=== PATIENT | male | born 1960 | race Caucasian/White ===

== ENCOUNTER 2022-05-02 07:43 | Day surgery (SDC) | payer OTHER ==
[2022-04-26 12:19] VITALS: BMI 35.5
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
[~2022-05-02 07:43] MED LIST: LACTATED RINGERS 1,000 ML IV SCH
[2022-05-02 08:33] VITALS: TEMP 97.1
[2022-05-02] MEDS ORDERED: fentaNYL (PF) 50 MCG/ML 2 ML AMP ONE (08:34)
[2022-05-02] MEDS ORDERED: PHENYLEPHRINE-0.9% NACL SYG 1,000 MCG/10 ML SYRINGE ONE (08:34)
[2022-05-02] MEDS ORDERED: PROPOFOL 10 MG/ML 20 ML VIAL IV ONE (08:34)
[2022-05-02] MEDS ORDERED: LIDOCAINE 2% INJ 20 MG/ML (2 ML VIAL) ONE (08:34)
--- NOTE | 2022-05-02 08:57 | P.PCN ---
Date of Procedure: 05/02/22 Description of Procedure: PREOPERATIVE DIAGNOSIS: Gastroesophageal reflux disease. POSTOPERATIVE DIAGNOSIS: Gastroesophageal reflux disease. Gastritis with bleeding Duodenitis OPERATION: Esophagogastroduodenoscopy with cold forceps biopsies along antrum and duodenum SURGEON: Rebecca Carrizales MD ANESTHESIA: MAC. INDICATIONS: The patient is a 61-year-old male who presents with reflux disease. Benefits and risks of the procedure were described. Informed consent was obtained. DESCRIPTION: The patient was brought into the endoscopy suite and laid in the left lateral decubitus position. An Olympus gastroscope was passed along the posterior oropharynx down to the distal esophagus where the squamocolumnar junction was encountered at 43 cm from the incisors. The stomach was entered and no bile reflux was found. Additional findings are listed below. Biopsies with cold forceps were obtained of the antrum. The first through third portion of the duodenum was examined. Retroflexion of the scope confirmed Hill grade 2 lower esophageal valve. The squamocolumnar junction demonstrated LA grade A erosive esophagitis. The stomach was desufflated. The patient tolerated the procedure well. FINDINGS: Squamocolumnar junction 43 cm from the incisors. Diaphragmatic hiatus at 43 cm. Hill grade 2 lower esophageal valve. LA grade A erosive esophagitis. Active duodenitis with cold forcep biopsies obtained Chronic gastritis with bleeding RECOMMENDATIONS: Omeprazole 40 mg daily for 2 weeks
--- NOTE | 2022-05-02 09:26 | P.PCN ---
Date of Procedure: 05/02/22 Description of Procedure: PREOPERATIVE DIAGNOSIS: Personal history of colon polyps Colonoscopy screening POSTOPERATIVE DIAGNOSIS: Tubular adenoma hepatic flexure Scattered diverticulosis Internal hemorrhoids, grade 2 Tubular adenoma, sigmoid colon OPERATION: Colonoscopy to the ileocecal valve and appendiceal orifice, cecum Colonoscopy with hot snare polypectomy Colonoscopy with cold forceps biopsy SURGEON: Rebecca Carrizales MD. ANESTHESIA: MAC. INDICATIONS: The patient is an 61-year-old male who presents personal history of colon polyps. Last colonoscopy 5 years. Benefits and risks were described and informed consent was obtained. DESCRIPTION OF PROCEDURE: The patient had undergone Sutab prep. The patient had been brought into the operating room and laid in the left lateral decubitus position. After adequate intravenous sedation, the rectum was examined with 2% lidocaine jelly. The prostate was unremarkable. External hemorrhoids were encountered. The rectal tone was within normal limits. No lesions were palpated in the rectal vault. An Olympus colonoscope was advanced until the cecum, ileocecal valve and appendiceal orifice were clearly viewed. The prep was excellent. Few scattered diverticulosis was encountered. Colonic polyps were found and removed. No evidence of focal colitis was found. Retroflexion of the scope demonstrated grade 2 internal hemorrhoids without active bleeding or inflammation. The colon was desufflated. The patient had tolerated the procedure well. Withdrawal time was over 6 minutes. FINDINGS: Aronchick preparation quality scale 1 (1-5) Internal hemorrhoids, grade 2 External hemorrhoids, grade 2. No arteriovenous malformations. Few scattered diverticulosis Removal of 4 polyps: - Snare polypectomy hepatic flexure, 8 mm tubulovillous adenoma polyp. - Cold forceps biopsy at 20 cm from the anal verge 3, 3 to 4 mm polyps. No focal colitis. RECOMMENDATIONS: Given severity of tubular adenomas, recommend repeat colonoscopy 3 years, 2024 Plan - Discharge Summary Discharge Rx Participant: No New Discharge Prescriptions: New Sucralfate [Carafate] 1 gm PO BID #30 tablet Omeprazole [PriLOSEC] 40 mg PO DAILY #14 cap Continue Baclofen [Lioresal] 20 mg PO QID Gabapentin 600 mg PO TID Losartan [Cozaar] 12.5 mg PO DAILY Discontinued Ibuprofen [Motrin] 600 mg PO Q8HR PRN PRN Reason: Pain Discharge Medication List Baclofen [Lioresal] 20 mg PO QID 02/23/16 [History] Gabapentin 600 mg PO TID 02/26/16 [History] Losartan [Cozaar] 12.5 mg PO DAILY 04/26/22 [History] Omeprazole [PriLOSEC] 40 mg PO DAILY #14 cap 05/02/22 [Rx] Sucralfate [Carafate] 1 gm PO BID #30 tablet 05/02/22 [Rx] Follow up Appointment(s)/Referral(s): Rebecca Carrizales MD [STAFF PHYSICIAN] - 05/21/22 Patient Instructions/Handouts: Gastritis (DC), Diverticulosis (ED), Diet for Stomach Ulcers and Gastritis (ED), Colorectal Polyps (GEN), Diverticulosis Diet (GEN) Activity/Diet/Wound Care/Special Instructions: Repeat colonoscopy 3 years, 2024 Discharge Disposition: HOME SELF-CARE
[2022-05-02 09:46] VITALS: BP 102/69; PULSE 92; RESP 20
== END 2022-05-02 10:28 | disposition home or self-care (01) ==
LOC: ORWHC2ENDO 07:43
PROVIDERS: ATTEND Surgery Plastic and Reconstructive Surgery
DX: Z12.11 Encounter for screening for malignant neoplasm of colon (principal); K63.5 Polyp of colon; K57.30 Diverticulosis of large intestine without perforation or abscess without bleeding; K64.1 Second degree hemorrhoids; K29.51 Unspecified chronic gastritis with bleeding; K29.80 Duodenitis without bleeding; K44.9 Diaphragmatic hernia without obstruction or gangrene; K21.00 Gastro-esophageal reflux disease with esophagitis, without bleeding; Z86.010 Personal history of colon polyps; I10 Essential (primary) hypertension; G89.29 Other chronic pain; M54.9 Dorsalgia, unspecified; Z90.49 Acquired absence of other specified parts of digestive tract; Z87.891 Personal history of nicotine dependence; Z79.899 Other long term (current) drug therapy; G47.33 Obstructive sleep apnea (adult) (pediatric); Z80.3 Family history of malignant neoplasm of breast
CPT/HCPCS: 88305; 45380; 45385; 43239; J3010; J2370; J2704; J2001

== ENCOUNTER 2022-08-16 19:55 | Emergency (ER) | payer OTHER ==
[2022-08-16 20:00] VITALS: RESP 18; TEMP 98.1
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
[2022-08-17 00:12] VITALS: BP 156/71; PULSE 71
== END 2022-08-17 00:12 | disposition home or self-care (01) ==
LOC: EC 19:55
DX: M54.9 Dorsalgia, unspecified (principal); R51.9 Headache, unspecified; I10 Essential (primary) hypertension; G47.30 Sleep apnea, unspecified; Z87.891 Personal history of nicotine dependence; Z79.811 Long term (current) use of aromatase inhibitors; Z79.899 Other long term (current) drug therapy
CPT/HCPCS: 72125; 70450; 99285; 96372; J3360

== ENCOUNTER → 2022-09-06 | Outpatient (CLI) | payer OTHER ==
--- NOTE | 2022-09-09 15:30 | MR ---
MRI CERVICAL SPINE: CLINICAL HISTORY: Cervicalgia. TECHNIQUE: Multiplanar, multisequence imaging of the cervical spine is performed without IV contrast. COMPARISON: CT cervical spine August 16, 2022. FINDINGS: Sagittal images of the cervical spine show the craniocervical junction to show focal narrow ing with ligamentous thickening posterior to the dens. There is abnormal course of level of foramen m agnum with areas of increased T2 signal seen superior C4 and possibly C5 level sagittal image 10 wher e there is diminished AP diameter to the cord. There is increased signal roughly C6 level sagittal im age 9. Alignment is straightened. Artifact from anterior fusion hardware at C3-C4 level and C7-T1 lev el is present. There is ossific fusion or arthrodesis from C4 through C7 levels. Surgical to C7-T1 le parul on CT vessel seen on MRI. Prominent anterior osteophytes in the upper cervical spine are redemons trated. The bone marrow signal intensity is within normal limits. There is nonspecific lobulated 1.6 x 1.0 cm T1 hypointense and T2 hyperintense lesion involving the r ight posterior C2 axial image [address] image 50 including the level of base of dens on coronal images. Spinal cord shows slight increased signal at this level with mass effect in the right sided osseous lesion has posterior extension. Axial images at C2-C3 level show uncovertebral facet degenerative changes causing mild bilateral neur al foraminal narrowing. Axial images at C3-C4 level show broad-based right paracentral/foraminal reported complex effacing th e anterolateral thecal sac along with uncovertebral facet degenerative changes causing moderate to ad vanced right and moderate left-sided neural foraminal narrowing. Axial images at C4-C5 level broad-based left paracentral bony projection efface the anterolateral the lyly sac, there is mild bilateral neural foraminal narrowing. Spinal cord is flattened with increased signal at this level. Axial images at C5-C6 level shows broad-based posterior projection efface the anterior thecal sac and causing moderate left greater than right bilateral neural foraminal narrowing. Axial images at C6-C7 level appear within normal limits. Axial images at C7-T1 level near image 18 shows moderate left-sided neural foraminal narrowing due to foraminal bony projection. Axial images at T1-T2 level show marginal spurring causing [id number] bilateral neural foramina l narrowing. IMPRESSION: Straightening of cervical spine with multilevel degenerative changes as detailed above. A reas of myelomalacia in the cervical spinal cord are noted. There is nonspecific bony lesion involvin g the C2 vertebra posteriorly extending to the anterior spinal canal having mass effect on spinal cor d. Spinal canal stenosis overall as seen at this level. Correlate clinically.
== END | disposition home or self-care (01) ==
LOC: RADMRIMAIN 10:10
PROVIDERS: ATTEND Orthopaedic Surgery Orthopaedic Surgery of the Spine
DX: M79.12 Myalgia of auxiliary muscles, head and neck (principal); M48.02 Spinal stenosis, cervical region; M47.812 Spondylosis without myelopathy or radiculopathy, cervical region; G95.89 Other specified diseases of spinal cord
CPT/HCPCS: 72141

== ENCOUNTER → 2022-10-19 | Outpatient (CLI) | payer OTHER ==
--- NOTE | 2022-10-19 11:35 | XR ---
EXAMINATION TYPE: XR thoracic spine 3 views DATE OF EXAM: 10/19/2022 COMPARISON: NONE HISTORY: 61-year-old male Z98.1, assess arthrodesis status. TECHNIQUE: 3 views FINDINGS: C3-C4 ACDF. There may be additional C7-T1 ACDF. There is right lateral and interbody T9-T10 thoracic fusion hardware. There is a T7-T8 interbody device that shows no retropulsion. Right lateral eighth r ib internal fixation. The fixation plate may be broken along its mid aspect on the lateral view. Mild ly displaced fracture of the right lateral seventh rib. Overall vertebral body heights are preserved and overall alignment appears maintained alignment for some limitations due to underpenetration. IMPRESSION: 1. Status post C3-C4 and C7-T1 ACDF. Right lateral and interbody thoracic spinal fusion at T9-T10. In terbody fusion device at T7-T8. 2. Right lateral eighth rib internal fixation hardware. The fixation plate may be broken along its mi d aspect on the lateral view. 3. Mildly displaced fracture of the right lateral seventh rib. Correlate as to chronicity.
--- NOTE | 2022-10-19 11:42 | XR ---
EXAMINATION TYPE: XR lumbar spine with bend/flex, 7 views DATE OF EXAM: 10/19/2022 Comparison: None Clinical History: 61-year-old male Z98.1 ARTHRODESIS STATUS Findings: L1-L2 posterior and interbody fusion is demonstrated. Moderate degenerative disc disease. Hypertrophi c facet arthropathy mid to lower lumbar spine. There is bridging anterior endplate spondylosis at L4- L5 and L5-S1. Degenerative grade 1 retrolisthesis T12-L1, grade 1 retrolisthesis L2-L3 and L3-L4. Tra ce grade 1 anterolisthesis L4-L5. No dynamic subluxation on flexion or extension. Impression: 1. L1-L2 posterior and interbody fusion. There is some anterior bridging endplate spondylosis at L4-L 5 and L5-S1. 2. Fixed degenerative grade 1 spondylolisthesis at T12-L1, L2-L3, L3-L4, L4-L5. No dynamic subluxatio n on flexion-extension. 3. Moderate degenerative disc disease throughout. Hypertrophic facet arthropathy.
--- NOTE | 2022-10-19 21:35 | MR ---
EXAMINATION TYPE: MR thoracic spine wo con DATE OF EXAM: 10/19/2022 10:53 AM COMPARISON: 07/24/2016 MRI T and L-spine INDICATION: Patient age:Male; 61 years old; Reason for study: Z98.1 ARTHRODESIS STATUS; TECHNIQUE: Multi planar, multi sequence imaging was performed utilizing: T1-weighted and T2-weighted of the thoracic spine. The patient was not given Gadolinium. IV Contrast: None FINDINGS: Mild scoliosis changes present with dextroscoliosis of the thoracic spine apex T6 and levos coliosis of the lumbar spine apex T11. There is multilevel disc space narrowing present with postsurg ical changes at C7-T1, T7-T8, T9-T10 and partially visualized at L1 and L2 are present. No evidence f or abnormal signal on inversion recovery since sequences to suggest bony edema. Multilevel disc space narrowing and disc desiccation is present. Multilevel Modic changes are present with osteophytes pre sent. The visualized portions of the spinal cord demonstrates increased signal at the level of T7-T8 and th e lateral aspect and at T9-T10 along the right and central aspect. (Series 701 image 25). T1-T2: Mild grade 1 anterolisthesis with disc uncovering and disc bulging resulting in moderate spina l spinal canal stenosis. The neural foramen are patent. T2-T3: Disc bulging and facet joint arthropathy result in mild to moderate spinal canal stenosis. Mod erate bilateral neural foraminal stenosis from facet joint arthropathy. T5-T6: Left central disc protrusion with mild spinal canal stenosis. The neural foramen are patent. T7-T8: Discectomy changes with asymmetric left osteophyte resulting in moderate spinal canal stenosis . There is increased cord signal at this level on the left lateral aspect as mentioned above. Mild to moderate left neural foraminal stenosis. T8-T9: Central disc protrusion which abuts the anterior spinal cord. The spinal cord signal maintaine d. The neural foramen is patent. T9-T10: Postsurgical changes and osteophyte formation with mild spinal canal stenosis. There is mild spinal canal narrowing. Mild right neural foraminal stenosis the left neural foramen is patent. T10-T11: Facet joint arthropathy and disc bulge with mild to moderate spinal canal stenosis. Moderate bilateral neural foraminal stenosis from facet joint arthropathy. T11-T12: Disc bulging and facet joint arthropathy with moderate to severe spinal canal stenosis at th e level. Moderate to severe neural foraminal stenosis bilaterally from facet joint arthropathy. T12-L1: Postsurgical changes limit evaluation of this level. There is at least mild spinal canal joana nosis secondary to disc bulge anteriorly slightly eccentric right. Neural foramen are patent. The levels not mentioned demonstrate patent spinal canal and neural foramen. Other: Mild atrophy changes of the left supraspinatus and infraspinatus and right supraspinatus muscl es suspicious for rotator cuff tears. IMPRESSION: 1. Multilevel disc degeneration changes as described above. Findings worse at T11-T12 with moderate to severe spinal canal stenosis and T7-T8 with moderate spinal canal stenosis. Mildly progressed at T 11-T12 and similar at T7-T8. 2. Myelomalacia of the spinal cord at the level of T7-T8 on the left lateral aspect and T9-T10 along the right and central portion of the spinal cord which are both similar to 2016.
== END | disposition home or self-care (01) ==
LOC: RADMRIMAIN 09:22
PROVIDERS: ATTEND Specialist
DX: S22.41XA Multiple fractures of ribs, right side, initial encounter for closed fracture (principal); M51.36 Other intervertebral disc degeneration, lumbar region; M47.816 Spondylosis without myelopathy or radiculopathy, lumbar region; M47.817 Spondylosis without myelopathy or radiculopathy, lumbosacral region; M43.16 Spondylolisthesis, lumbar region; M48.04 Spinal stenosis, thoracic region; M51.34 Other intervertebral disc degeneration, thoracic region; G95.89 Other specified diseases of spinal cord; Z98.1 Arthrodesis status
CPT/HCPCS: 72070; 72114; 72146

== ENCOUNTER → 2022-10-22 | Outpatient (CLI) | payer OTHER ==
--- NOTE | 2022-10-22 15:41 | MR ---
EXAMINATION TYPE: MR lumbar spine wo con DATE OF EXAM: 10/22/2022 COMPARISON: MRI thoracic spine 10/19/2022, lumbar spine radiograph 10/19/2022, MRI thoracolumbar spin e 07/24/2016. HISTORY: Arthrodesis status, history of surgery TECHNIQUE: Multiplanar, multisequence images of the lumbar spine were acquired without IV contrast. FINDINGS: Mild retrolisthesis of L2 on L3. Mild S-shaped curvature of the thoracolumbar spine. Postsurgical kamla nges of bilateral pedicular screws and rods involving L1 and L2. Hardware appears intact with appropr iate alignment. Type II Modic changes involving the inferior endplate of L5 and superior endplate of S1. No paraspinal masses are identified. Conus medullaris has a normal appearance. L1-L2: Postsurgical changes with central disc protrusion with facet arthropathy contributing to moder ate spinal canal stenosis. Moderate bilateral neural foraminal stenosis. L2-L3: Broad-based disc bulge with ligamentum flavum buckling and facet arthropathy contribute to mod erate spinal canal stenosis. Moderate to severe bilateral neural foraminal stenosis. L3-L4: Broad-based disc bulge with ligament flavum buckling and facet hypertrophy resulting in modera te spinal canal stenosis. Moderate to severe bilateral neural foraminal stenosis. L4-L5: Left central disc protrusion superimposed upon a broad-based disc bulge with facet arthropathy and ligamentum flavum buckling contributing to moderate spinal canal stenosis. Moderate bilateral ne uroforaminal stenosis. L5-S1: Central disc protrusion superimposed upon a broad-based disc bulge with minimal effacement of the anterior thecal sac. There is facet arthropathy bilaterally. Minimal spinal canal narrowing. Mode rate to severe bilateral neural foraminal stenosis. IMPRESSION: 1. L1-L2, L4-L5, and L5-S1 disc herniations. 2. Moderate multilevel degenerative disc disease. Moderate spinal canal stenosis at L1-L2, L2-L3, L3 -L4, and L4-L5. Varying degrees of neural foraminal stenosis. 3. Postsurgical changes with bilateral pedicle screws and rods involving L1-L2.
== END | disposition home or self-care (01) ==
LOC: RADMRIMAIN 13:05
PROVIDERS: ATTEND Specialist
DX: M51.27 Other intervertebral disc displacement, lumbosacral region (principal); M51.36 Other intervertebral disc degeneration, lumbar region; M48.061 Spinal stenosis, lumbar region without neurogenic claudication; M99.73 Connective tissue and disc stenosis of intervertebral foramina of lumbar region; Z98.1 Arthrodesis status
CPT/HCPCS: 72148

== ENCOUNTER → 2023-04-17 | Outpatient (CLI) | payer OTHER ==
--- NOTE | 2023-04-17 19:47 | XR ---
EXAMINATION TYPE: XR cervical spine 5 views DATE OF EXAM: 04/17/2023 Comparison: None Clinical History: 62-year-old male M43.22 Findings: Extensive posterior craniocervical fusion extending from the occiput down through C5. ACDF at C3-C4 w ith mature bony bridging. Interbody ankylosis extends at least down to the C7 level but additional AC DF is noted probably in the T1-T2 level. Overall alignment appears maintained. No prevertebral soft t issue swelling. 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 There is ACDF at C3-C4 and also lower down probably T1-T2. Preserved alignment. No prevertebral soft tissue swelling.
== END | disposition home or self-care (01) ==
LOC: RADXRMAIN 14:08
PROVIDERS: ATTEND Specialist
DX: M43.22 Fusion of spine, cervical region (principal); Z98.1 Arthrodesis status
CPT/HCPCS: 72040

== ENCOUNTER 2024-12-21 15:23 | Emergency (ER) | payer MEDICARE, OTHER ==
[2024-12-21 15:38] VITALS: RESP 16
--- NOTE | 2024-12-21 15:49 | ED ---
General Adult HPI - General Chief complaint: Back Pain/Injury Stated complaint: Back Pain Time Seen by Provider: 12/21/24 15:35 Source: patient, EMS Mode of arrival: EMS Limitations: no limitations - History of Present Illness Initial comments: Patient is a 64-year-old male present to the emergency department with concerns with back pain. Patient has chronic back pain. Patient is chronically on naproxen and muscle relaxers for this. Patient states symptoms have been worse the past 2 weeks. Patient states he has had previous imaging has seen doctors as well. Patient states he did also see a doctor at an outside facility a couple of days ago and was given a new muscle relaxer. No new incontinence or retention of bowel or bladder products. No leg weakness. Discomfort is right sciatic region and does radiate down a little bit. Similar to previous symptoms. Patient did have a fall 2 days ago onto his bottom. Patient states this seems to make things worse. - Related Data Home Medications Medication Instructions Recorded Confirmed Baclofen [Lioresal] 20 mg PO QID 02/23/16 05/02/22 Gabapentin 600 mg PO TID 02/26/16 05/02/22 Losartan [Cozaar] 12.5 mg PO DAILY 04/26/22 05/02/22 Previous Rx's Medication Instructions Recorded Omeprazole [PriLOSEC] 40 mg PO DAILY #14 cap 05/02/22 Sucralfate [Carafate] 1 gm PO BID #30 tablet 05/02/22 predniSONE 50 mg PO DAILY #5 tab 12/21/24 Allergies Allergy/AdvReac Type Severity Reaction Status Date / Time No Known Allergies Allergy Verified 12/21/24 15:38 Review of Systems ROS Statement: Those systems with pertinent positive or pertinent negative responses have been documented in the HPI. ROS Other: All systems not noted in ROS Statement are negative. Constitutional: Denies: fever Eyes: Denies: eye pain ENT: Denies: ear pain Respiratory: Denies: dyspnea Cardiovascular: Denies: chest pain Gastrointestinal: Denies: abdominal pain Musculoskeletal: Reports: as per HPI Neurological: Denies: weakness Past Medical History Past Medical History: Hypertension, Sleep Apnea/CPAP/BIPAP Additional Past Medical History / Comment(s): CPAP -USES CPAP. CHRONIC BACK PAIN (USES CANES TO WALK). , History of Any Multi-Drug Resistant Organisms: None Reported Past Surgical History: Back Surgery, Cholecystectomy, Tonsillectomy Additional Past Surgical History / Comment(s): HAD BILAT CATARACT REMOVED WITH LENS IMPLANTS. AUTO TRAUMA: HAS HAD 4 BACK SURGERIES PLUS 5 CERIVAL FUSIONS. RIGHT ORIF AND ALSO REFRACTURED THAT LEG., COLONOSCOPY , RT KNEE SX Past Anesthesia/Blood Transfusion Reactions: No Reported Reaction Past Psychological History: No Psychological Hx Reported Smoking Status: Former smoker Past Alcohol Use History: Occasional Past Drug Use History: None Reported - Past Family History Mother Family Medical History: Cancer Additional Family Medical History / Comment(s): BREAST CA General Exam Limitations: no limitations General appearance: alert, in no apparent distress Head exam: Present: normocephalic Eye exam: Present: normal appearance Neck exam: Present: normal inspection Respiratory exam: Present: normal lung sounds bilaterally Cardiovascular Exam: Present: regular rate, normal rhythm Expanded Peripheral pulses: 2+: Dorsalis Pedis (R), Dorsalis Pedis (L) GI/Abdominal exam: Present: soft. Absent: tenderness, pulsatile mass Extremities exam: Present: pedal edema ( patient states this is chronic). Absent: calf tenderness Back exam: Present: tenderness (Right sciatic region) Neurological exam: Present: alert. Absent: motor sensory deficit Expanded Sensory exam: Lower Extremity Light Touch: Normal Motor strength exam: RLE: 5, LLE: 5 Psychiatric exam: Present: normal affect, normal mood Skin exam: Present: normal color Course Vital Signs 12/21/24 15:30 Pulse Rate 74 Respiratory 16 Rate Blood Pressure 134/85 O2 Sat by Pulse 97 Oximetry Medical Decision Making - Medical Decision Making Was pt. sent in by a medical professional or institution (, PA, POULTRY VETERINARIAN, urgent care, hospital, or penitentiary...) When possible be specific @ -No Did you speak to anyone other than the patient for history (EMS, parent, family, police, friend...)? What history was obtained from this source @ -No Did you review nursing and triage notes (agree or disagree)? Why? @ -I reviewed and agree with nursing and triage notes Were old charts reviewed (outside hosp., previous admission, EMS record, old EKG, old radiological studies, urgent care reports/EKG's, penitentiary records)? Report findings @ -No old charts were reviewed Differential Diagnosis (chest pain, altered mental status, abdominal pain women, abdominal pain men, vaginal bleeding, weakness, fever, dyspnea, syncope, headache, dizziness, GI bleed, back pain, seizure, CVA, palpatations, mental health, musculoskeletal)? @ -Differential Back Pain: Strain, zoster, cauda equina syndrome, epidural abscess, vertebral osteomyelitis, discitis, fracture, subluxation, disc herniation, DJD, spinal stenosis, dissection, AAA, pancreatitis, peptic ulcer disease, pyelonephritis, kidney stone, this is not meant to be an all-inclusive list. EKG interpreted by me (3pts min.). @ -As above X-rays interpreted by me (1pt min.). @ -Sacral x-rays without acute abnormality CT interpreted by me (1pt min.). @ -None done U/S interpreted by me (1pt. min.). @ -None done What testing was considered but not performed or refused? (CT, X-rays, U/S, labs)? Why? @ -None What meds were considered but not given or refused? Why? @ -None Did you discuss the management of the patient with other professionals (professionals i.e. , PA, POULTRY VETERINARIAN, lab, RT, psych nurse, aids social worker, lumber puller, teacher, juvenile corrections officer, disease case manager rn)? Give summary @ -No Was smoking cessation discussed for >3mins.? @ -No Was critical care preformed (if so, how long)? @ -No Were there social determinants of health that impacted care today? How? (Homelessness, low income, unemployed, alcoholism, drug addiction, transportation, low edu. Level, literacy, decrease access to med. care, nursing home, rehab)? @ -No Was there de-escalation of care discussed even if they declined (Discuss DNR or withdrawal of care, Hospice)? DNR status @ -No What co-morbidities impacted this encounter? (DM, HTN, Smoking, COPD, CAD, Cancer, CVA, ARF, Chemo, Hep., AIDS, mental health diagnosis, sleep apnea, morbid obesity)? @ -History of chronic pain, sciatic and back and neck Was patient admitted / discharged? Hospital course, mention meds given and route, prescriptions, significant lab abnormalities, going to OR and other pertinent info. @ -Patient presents with acute on chronic sciatic pain. Patient does want x- rays which are unremarkable. Patient and family are updated on results and need for follow-up. Patient provided medication and injections. Undiagnosed new problem with uncertain prognosis? @ -No Drug Therapy requiring intensive monitoring for toxicity (Heparin, Nitro, In sulin, Cardizem)? @ -No Were any procedures done? @ -No Diagnosis/symptom? @ -Sciatica Acute, or Chronic, or Acute on Chronic? @ -Acute on chronic Uncomplicated (without systemic symptoms) or Complicated (systemic symptoms)? @ -Default Side effects of treatment? @ -No Exacerbation, Progression, or Severe Exacerbation? @ -No Poses a threat to life or bodily function? How? (Chest pain, [place], [place], pneumonia, PE, COPD, DKA, ARF, appy, cholecystitis, CVA, Diverticulitis, Homicidal, Suicidal, threat to staff... and all critical care pts) @ -No Disposition Clinical Impression: Sciatica Disposition: HOME SELF-CARE Condition: Stable Instructions (If sedation given, give patient instructions): Acute Low Back Pain (ED) Additional Instructions: Prescription for steroid sent to pharmacy. Do not take naproxen at the same time as steroids. Please do follow-up with primary care physician in the next couple of days for recheck. Please also follow-up with your back doctor in the next couple days for recheck. Return for weakness, loss of control of bowel or bladder, loss of sensation, fever, worsening or changing symptoms or other concerns. Prescriptions: predniSONE 50 mg PO DAILY #5 tab Is patient prescribed a controlled substance at d/c from ED?: No Referrals: Gilmar Szymanski DO [Primary Care Provider] - 1-2 days Time of Disposition: 17:04
--- NOTE | 2024-12-21 16:23 | XR ---
EXAMINATION TYPE: XR sacroiliac joint comp BILAT DATE OF EXAM: 12/21/2024 4:18 PM COMPARISON: None. CLINICAL INDICATION: Male, 64 years old with history of pain, pain TECHNIQUE: 3 view(s) obtained. FINDINGS: Sacroiliac joints are patent. No acute fracture or dislocation evident. IMPRESSION: 1. No acute osseous abnormality sacroiliac joints [facility], , 12/21/2024 4:20 PM
[2024-12-21] MEDS: KETOROLAC 15 MG/ML 1 ML VIAL IM STA (16:26)
[2024-12-21] MEDS: HYDROmorphone 1 MG/ML 1 ML SYRINGE IM STA (16:27)
[2024-12-21 17:41] VITALS: BP 135/86; PULSE 76; TEMP 98.9
[2024-12-21] MEDS: ACET/COD 300 MG/30 MG STARTER PACK 6 TAB BTL PO STA (17:47)
== END 2024-12-21 17:55 | disposition home or self-care (01) ==
LOC: EC 15:23
DX: M54.31 Sciatica, right side (principal); Z87.891 Personal history of nicotine dependence
CPT/HCPCS: 72202; 99284; 96372; J1171; J1885

== ENCOUNTER 2024-12-28 12:19 | Inpatient (IN) | payer OTHER, MEDICARE ==
--- NOTE | 2024-12-28 13:02 | CT ---
EXAMINATION TYPE: CODE STROKE: CT brain wo contr CT DLP: 1231.6 mGycm, Automated exposure control for dose reduction was used. DATE OF EXAM: 12/28/2024 12:55 PM COMPARISON: CT brain C-spine 08/16/2022 CLINICAL INDICATION:Male, 64 years old with history of Neuro deficit, acute, stroke suspected, Lt sonam ed weakness and numbness TECHNIQUE: Brain: Multiple axial CT images of the brain were obtained without IV contrast. . Coronal and sagitta l reformats reviewed. FINDINGS: Brain: Extra-axial spaces: No abnormal extra-axial fluid collections. Ventricular system: Within normal limits Cerebral parenchyma: No acute intraparenchymal hemorrhage or mass effect. The nunez-white junction is well differentiated. Cerebellum: Unremarkable. Mass effect: No evidence of midline shift. Intracranial vasculature: unremarkable Soft tissues: Normal. Calvarium/osseous structures: No depressed skull fracture. Partial visualization of cervical decompre ssion with hardware. Paranasal sinuses and mastoid air cells: Several bilateral maxillary sinus mucous retention cyst. Rem aining paranasal sinuses are clear. The mastoid air cells are clear. Visualized orbits: Bilateral aphakia IMPRESSION: No acute intracranial process. Findings called to and discussed with Dr. Erik Romano at 12:59 PM on 12/28/2024. [facility], , 12/28/2024 12:59 PM
[2024-12-28] MEDS: SODIUM CHLORIDE 0.9% 500 ML 500 ML IV STA (13:10)
[2024-12-28 13:11] LABS: Glucose,Whole Blood 96 mg/dL (70-110)
--- NOTE | 2024-12-28 13:29 | CT ---
EXAMINATION TYPE: CT angio head neck DATE OF EXAM: 12/28/2024 COMPARISON: CLINICAL INDICATION: Male, 64 years old with history of Neuro deficit, acute, stroke suspected; PHH, Lt sided numbness and weakness TECHNIQUE: CTA scan of the head and neck is performed with IV Contrast, patient injected with 65 mL of Isovue 370, axial images are obtained, coronal and sagittal reformatted images are reviewed. 3D re constructed images are created on an independent workstation and reviewed. CT DLP: 918.[address] CTDI: mGy Automated exposure control for dose reduction was used. NASCET criteria was used in interpretation of this exam? FINDINGS: The brachiocephalic origins are widely patent and no significant stenosis. There is a moderate focal stenosis in the right internal carotid artery approximately 2 cm distal to the bifurcation. There is no significant stenosis in the left common or internal carotid artery. Ther e is no stenosis of the vertebral arteries. Intracranially, there is no stenosis, segmental occlusion, sizable aneurysm sac or vascular malformat ion. IMPRESSION:. Moderate right internal carotid artery focal stenosis approximately 2 cm distal to the b ifurcation. No other occlusive disease is identified NASCET criteria was used in interpretation of this exam? [facility], Workstation: [id number] 12/28/2024 1:27 PM
[2024-12-28 13:31] LABS: Partial Thromboplastin Time 22.9 sec (22.0-30.0); Prothrombin Time 11.2 sec (10.0-12.5)
[2024-12-28 13:33] LABS: Basophils # (A) 0.1 k/uL (0-0.2); Basophils % (A) 0 %; Eosinophils # (A) 0.2 k/uL (0-0.7); Eosinophils % (A) 2 %; HCT 46.2 % (39.0-53.0); HGB 15.7 gm/dL (13.0-17.5); Lymphocytes # (A) 3.5 k/uL (1.0-4.8); Lymphocytes % (A) 31 %; MCHC 34.1 g/dL (31.0-37.0); MCV 96.7 fL (80.0-100.0); Mean Platelet Volume 6.9; Monocytes % (A) 9 %; Neutrophils # (A) 6.3 k/uL (1.3-7.7); Neutrophils % (A) 56 %; Platelet Count 173 k/uL (150-450); RBC 4.78 m/uL (4.30-5.90); RDW 12.5 % (11.5-15.5); WBC 11.3 k/uL (3.8-10.6)
[2024-12-28 13:34] LABS: ALT 55 U/L (4-49); AST 27 U/L (17-59); African American GFR (CKD) >90 (>60 ml/min/1.73 sqM); Alkaline Phosphatase 94 U/L (38-126); Anion Gap 8 mmol/L; Blood Urea Nitrogen 26 mg/dL (9-20); Calcium 8.9 mg/dL (8.4-10.2); Carbon Dioxide 29 mmol/L (22-30); Chloride 98 mmol/L (98-107); Creatine Kinase 137 U/L (55-170); Glucose 91 mg/dL (74-99); Non-African American GFR(CKD) >90 (>60 ml/min/1.73 sqM); Potassium 3.8 mmol/L (3.5-5.1); Sodium 135 mmol/L (137-145); Total Bilirubin 0.8 mg/dL (0.2-1.3); Total Protein 6.9 g/dL (6.3-8.2)
--- NOTE | 2024-12-28 13:34 | ED ---
General Adult HPI - General Chief complaint: Neuro Symptoms/Deficit Stated complaint: L sided numbness, memory fog Time Seen by Provider: 12/28/24 12:40 Source: patient, family, RN notes reviewed, old records reviewed Mode of arrival: wheelchair Limitations: no limitations - History of Present Illness Initial comments: This is a 64-year-old male who presents to the emergency department stating he has chronic lower back issues and he has sciatica. Patient states he recently fell and the weakness in both legs has gotten worse over the last week or so but the left side is gotten definitely worse compared to the right. Patient states today at about 10:00 he all of a sudden started feeling weaker in his left arm and felt like his left arm was not as coordinated. Patient denies any facial droop or slurred speech. Patient Nuys any headache patient denies any chest pain difficulty breathing shortness of breath. Patient has any palpitation. Patient has abdominal pain. - Related Data Home Medications Medication Instructions Recorded Confirmed Baclofen [Lioresal] 20 mg PO QID 02/23/16 12/28/24 Losartan-Hctz 50-12.5 mg [Hyzaar 1 tab PO DAILY 12/28/24 12/28/24 50-12.5] Naproxen [Naprosyn] 500 mg PO BID PRN 12/28/24 12/28/24 Allergies Allergy/AdvReac Type Severity Reaction Status Date / Time No Known Allergies Allergy Verified 12/28/24 13:33 Review of Systems ROS Statement: Those systems with pertinent positive or pertinent negative responses have been documented in the HPI. ROS Other: All systems not noted in ROS Statement are negative. Past Medical History Past Medical History: Hypertension, Sleep Apnea/CPAP/BIPAP Additional Past Medical History / Comment(s): CPAP -USES CPAP. CHRONIC BACK PAIN (USES CANES TO WALK). , History of Any Multi-Drug Resistant Organisms: None Reported Past Surgical History: Back Surgery, Cholecystectomy, Tonsillectomy Additional Past Surgical History / Comment(s): HAD BILAT CATARACT REMOVED WITH LENS IMPLANTS. AUTO TRAUMA: HAS HAD 4 BACK SURGERIES PLUS 5 CERIVAL FUSIONS. RIGHT ORIF AND ALSO REFRACTURED THAT LEG., COLONOSCOPY , RT KNEE SX Past Anesthesia/Blood Transfusion Reactions: No Reported Reaction Past Psychological History: No Psychological Hx Reported Smoking Status: Former smoker Past Alcohol Use History: Occasional Past Drug Use History: None Reported - Past Family History Mother Family Medical History: Cancer Additional Family Medical History / Comment(s): BREAST CA General Exam - General Exam Comments Initial Comments: GENERAL: Patient is well-developed and well-nourished. Patient is nontoxic and well-hydrated and is in mild distress. ENT: Neck is soft and supple. No significant lymphadenopathy is noted. Oropharynx is clear. Moist mucous membranes. Neck has full range of motion without eliciting any pain. EYES: The sclera were anicteric and conjunctiva were pink and moist. Extraocular movements were intact and pupils were equal round and reactive to light. Eyelids were unremarkable. PULMONARY: Unlabored respirations. Good breath sounds bilaterally. No audible rales rhonchi or wheezing was noted. CARDIOVASCULAR: There is a regular rate and rhythm without any murmurs gallops or rubs. ABDOMEN: Soft and nontender with normal bowel sounds. SKIN: Skin is clear with no lesions or rashes and otherwise unremarkable. NEUROLOGIC: Patient is alert and oriented x3. Cranial nerves II through XII are grossly intact. Patient's left parole supervisor is 4 out of 5 strength compared to the right parole supervisor. Normal speech, volume and content. Symmetrical smile. Her nose testing on the left is slightly off. Patient's NIH is 2 MUSCULOSKELETAL: Normal extremities with adequate strength and full range of motion. No lower extremity swelling or edema. No calf tenderness. LYMPHATICS: No significant lymphadenopathy is noted PSYCHIATRIC: Normal psychiatric evaluation. Limitations: no limitations Course Vital Signs 12/28/24 12/28/24 12/28/24 12:29 13:17 13:21 Temperature 97.4 F L Pulse Rate 81 76 74 Respiratory 20 20 18 Rate Blood Pressure 146/85 138/90 143/90 O2 Sat by Pulse 97 97 97 Oximetry 12/28/24 12/28/24 13:36 14:36 Temperature Pulse Rate 71 77 Respiratory 18 18 Rate Blood Pressure 139/82 119/83 O2 Sat by Pulse 96 97 Oximetry Medical Decision Making - Medical Decision Making EKG is interpreted by myself but EKG shows a sinus rhythm at 76 bpm HI 192 QRS 100 QT interval 394 QTc is 415. Patient's EKG shows no ST segment elevation or depression. Was pt. sent in by a medical professional or institution (, PA, SUSTAINABILITY OFFICER, urgent care, hospital, or intermediate...) When possible be specific @ -No Did you speak to anyone other than the patient for history (EMS, parent, family, police, friend...)? What history was obtained from this source @ -No Did you review nursing and triage notes (agree or disagree)? Why? @ -I reviewed and agree with nursing and triage notes Were old charts reviewed (outside hosp., previous admission, EMS record, old EKG, old radiological studies, urgent care reports/EKG's, intermediate records)? Report findings @ -No old charts were reviewed Differential Diagnosis? @ -Differential CVA Ischemic stroke, hemorrhagic stroke, brain tumor, atypical migraine, Wernicke's encephalopathy, seizure, multiple sclerosis, meningitis, encephalitis, hypoglycemia, Guillain-Bass, electrolytes disturbance, myasthenia gravis.... This is not meant to be an all-inclusive list EKG interpreted by me (3pts min.). @ -As above X-rays interpreted by me (1pt min.). @ -None done CT interpreted by me (1pt min.). @ -The brain shows no acute normality. CT of the angiogram of the head and neck show moderately stenosed right carotid artery U/S interpreted by me (1pt. min.). @ -None done What testing was considered but not performed or refused? (CT, X-rays, U/S, labs)? Why? @ -None What meds were considered but not given or refused? Why? @ -None Did you discuss the management of the patient with other professionals (professionals i.e. , PA, SUSTAINABILITY OFFICER, lab, RT, psych nurse, clinical social work aide, education diagnostician, teacher, community reinvestment act officer, case management specialist)? Give summary @ -I spoke with sound physicians agreed admit the patient admit the patient would have any worse Was smoking cessation discussed for >3mins.? @ -No Was critical care preformed (if so, how long)? @ -No Were there social determinants of health that impacted care today? How? (Homelessness, low income, unemployed, alcoholism, drug addiction, transp ortation, low edu. Level, literacy, decrease access to med. care, detention, rehab)? @ -No Was there de-escalation of care discussed even if they declined (Discuss DNR or withdrawal of care, Hospice)? DNR status @ -No What co-morbidities impacted this encounter? (DM, HTN, Smoking, COPD, CAD, Cancer, CVA, ARF, Chemo, Hep., AIDS, mental health diagnosis, sleep apnea, morbid obesity)? @ -None Was patient admitted / discharged? Hospital course, mention meds given and route, prescriptions, significant lab abnormalities, going to OR and other pertinent info. @ -Patient started with an NIH of 2 went down to an NIH of 1 when I last visited him after all his lab work and CAT scans were done patient had NIH is 0. I did speak with Dr. Warner and I also spoke with sound physicians they agreed to admit the patient I consulted neurology. Patient was not given TNKase because the risks are outweighed the benefits and the patient was improving to the point where he had an NIH of 0 Undiagnosed new problem with uncertain prognosis? @ -No Drug Therapy requiring intensive monitoring for toxicity (Heparin, Nitro, Insulin, Cardizem)? @ -No Were any procedures done? @ -No Diagnosis/symptom? @ -TIA Acute, or Chronic, or Acute on Chronic? @ -Acute Uncomplicated (without systemic symptoms) or Complicated (systemic symptoms)? @ -Complicate Side effects of treatment? @ -No Exacerbation, Progression, or Severe Exacerbation? @ -No Poses a threat to life or bodily function? How? (Chest pain, [place], [place], pneumonia, PE, COPD, DKA, ARF, appy, cholecystitis, CVA, Diverticulitis, Homicidal, Suicidal, threat to staff... and all critical care pts) @ -Yes this could lead to a stroke and morbidity or mortality - Lab Data Result diagrams: 12/28/24 13:11 12/28/24 13:11 Lab Results 12/28/24 12/28/24 12/28/24 Range/Units 13:08 13:11 13:11 WBC 11.3 H (3.8-10.6) k/uL RBC 4.78 (4.30-5.90) m/uL Hgb 15.7 (13.0-17.5) gm/dL Hct 46.2 (39.0-53.0) % MCV 96.7 (80.0-100.0) fL MCH 33.0 (25.0-35.0) pg MCHC 34.1 (31.0-37.0) g/dL RDW 12.5 (11.5-15.5) % Plt Count 173 (150-450) k/uL MPV 6.9 Neutrophils % 56 % Lymphocytes % 31 % Monocytes % 9 % Eosinophils % 2 % Basophils % 0 % Neutrophils # 6.3 (1.3-7.7) k/uL Lymphocytes # 3.5 (1.0-4.8) k/uL Monocytes # 1.0 (0-1.0) k/uL Eosinophils # 0.2 (0-0.7) k/uL Basophils # 0.1 (0-0.2) k/uL PT 11.2 (10.0-12.5) sec INR 1.0 (<1.2) APTT 22.9 (22.0-30.0) sec Sodium (137-145) mmol/L Potassium (3.5-5.1) mmol/L Chloride (98-107) mmol/L Carbon Dioxide (22-30) mmol/L Anion Gap mmol/L BUN (9-20) mg/dL Creatinine (0.66-1.25) mg/dL Est GFR (CKD-EPI)AfAm (>60 ml/min/1.73 sqM) Est GFR (CKD-EPI)NonAf (>60 ml/min/1.73 sqM) Glucose (74-99) mg/dL POC Glucose (mg/dL) 96 (70-110) mg/dL POC Glu Cytogenetics Technologist ID Roque Mcgeeta Calcium (8.4-10.2) mg/dL Total Bilirubin (0.2-1.3) mg/dL AST (17-59) U/L ALT (4-49) U/L Alkaline Phosphatase (38-126) U/L Creatine Kinase (55-170) U/L Troponin I (0.000-0.034) ng/mL Total Protein (6.3-8.2) g/dL Albumin (3.5-5.0) g/dL 12/28/24 12/28/24 Range/Units 13:11 13:11 WBC (3.8-10.6) k/uL RBC (4.30-5.90) m/uL Hgb (13.0-17.5) gm/dL Hct (39.0-53.0) % MCV (80.0-100.0) fL MCH (25.0-35.0) pg MCHC (31.0-37.0) g/dL RDW (11.5-15.5) % Plt Count (150-450) k/uL MPV Neutrophils % % Lymphocytes % % Monocytes % % Eosinophils % % Basophils % % Neutrophils # (1.3-7.7) k/uL Lymphocytes # (1.0-4.8) k/uL Monocytes # (0-1.0) k/uL Eosinophils # (0-0.7) k/uL Basophils # (0-0.2) k/uL PT (10.0-12.5) sec INR (<1.2) APTT (22.0-30.0) sec Sodium 135 L (137-145) mmol/L Potassium 3.8 (3.5-5.1) mmol/L Chloride 98 (98-107) mmol/L Carbon Dioxide 29 (22-30) mmol/L Anion Gap 8 mmol/L BUN 26 H (9-20) mg/dL Creatinine 0.80 (0.66-1.25) mg/dL Est GFR (CKD-EPI)AfAm >90 (>60 ml/min/1.73 sqM) Est GFR (CKD-EPI)NonAf >90 (>60 ml/min/1.73 sqM) Glucose 91 (74-99) mg/dL POC Glucose (mg/dL) (70-110) mg/dL POC Glu Cytogenetics Technologist ID Calcium 8.9 (8.4-10.2) mg/dL Total Bilirubin 0.8 (0.2-1.3) mg/dL AST 27 (17-59) U/L ALT 55 H (4-49) U/L Alkaline Phosphatase 94 (38-126) U/L Creatine Kinase 137 (55-170) U/L Troponin I <0.012 (0.000-0.034) ng/mL Total Protein 6.9 (6.3-8.2) g/dL Albumin 4.0 (3.5-5.0) g/dL Disposition Clinical Impression: Transient cerebral ischemia Disposition: ADMITTED IP TO THIS HOSP Referrals: Gilmar Szymanski DO [Primary Care Provider] - 1-2 days Time of Disposition: 15:59
--- NOTE | 2024-12-28 14:10 | XR ---
EXAMINATION TYPE: XR chest 2V DATE OF EXAM: 12/28/2024 2:04 PM COMPARISON: Chest radiographs from oral 15/05/2016 TECHNIQUE: XR chest 2V Frontal and lateral views of the chest. CLINICAL INDICATION:Male, 64 years old with history of altered mental status; FINDINGS: Lungs/Pleura: There is no evidence of pleural effusion, focal consolidation, or pneumothorax. Pulmonary vascularity: Unremarkable. Heart/mediastinum: Cardiomediastinal silhouette is enlarged and stable. Musculoskeletal: Multiple level degenerative disc disease changes seen throughout the spine. Partial visualization of thoracolumbar fusion hardware. Right lower rib plating identified. Cervical fusion h ardware. Bilateral AC joint arthropathy. IMPRESSION: No acute cardiopulmonary disease/process. [facility], , 12/28/2024 2:07 PM
[2024-12-28] MEDS: ASPIRIN 325 MG TAB PO STA (16:55)
[2024-12-28] MEDS: BACLOFEN 10 MG TAB PO SCH (17:41)
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
[2024-12-28] MEDS: CYCLOBENZAPRINE 5 MG TAB PO PRN (21:02)
[2024-12-29] MEDS: LOSARTAN-HCTZ 50-12.5 MG 1 EACH TAB PO SCH (08:16)
[2024-12-29] MEDS: ASPIRIN 325 MG TAB PO SCH (08:16)
[2024-12-29 10:48] LABS: Chol/HDL Ratio 4.02 Ratio; LDL Cholesterol,Calculated 114.9 mg/dL (0.0-131.0)
[2024-12-29] MEDS: NAPROXEN 250 MG TAB PO PRN (11:57)
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
[2024-12-29] MEDS: ATORVASTATIN 40 MG TAB PO SCH (21:21)
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
[2024-12-30] MEDS: ENOXAPARIN 40 MG/0.4 ML SYRINGE SQ SCH (08:26)
[2024-12-30] MEDS: ASPIRIN 81 MG PO SCH (08:26)
[2024-12-30] MEDS: CLOPIDOGREL 75 MG TAB PO SCH (08:26)
--- NOTE | 2024-12-30 14:50 | MR ---
EXAMINATION TYPE: MR brain/cspine wo DATE OF EXAM: 12/30/2024 2:35 PM COMPARISON: 12/28/2024. CLINICAL INDICATION: Male, 64 years old with history of isolated L arm weakness; PHH, Isolated LT arm weakness TECHNIQUE: Multi planar, multi sequence imaging was performed through the brain including: T1, T2, Inversion rec overy, Diffusion weighted imaging, and gradient echo imaging. No gadolinium was given. Multi planar, multi sequence imaging was performed utilizing: T1-weighted, T2-weighted, and turbo inv ersion recovery imaging of the cervical spine. IV Contrast: mL none FINDINGS: Mild cerebral atrophy with proportional dilation of ventricular system. Scattered foci of high T2 s ignal intensity are seen within the periventricular white matter. Midline structures show no abnormal ity. Diffusion-weighted imaging shows no evidence of restricted diffusion. The susceptibility weighte d images do not reveal any evidence for micro-hemorrhage. The bone marrow signal is within normal limits. Paranasal sinuses and mastoid air cells: Scattered retention cysts. Visualized orbits: Bilateral aphakia Alignment: The cervical vertebral bodies have preserved heights. Alignment is within normal limits gi naomy patient positioning. Bones: Postsurgical changes of the spine with susceptibility artifact. Bone signal is within normal l imits. No abnormal bone marrow edema on inversion recovery sequences. Cord: There is atrophic appearance of the spine as it extends through C4-C5 and C6. There is abnormal cord signal within the bilateral spinal cord at these levels. The spinal cord is unremarkable with r egards to their signal intensity and morphology. Discs: Fusion at multiple levels particularly C4-C5 C5-C6 and C6-C7. C2-C3: No significant disc pathology. The spinal canal is patent. No neural foraminal stenosis. C3-C4: Disc is thought to be surgically absent osteophytes with mild to moderate spinal canal stenosi s. Bilateral facet and uncovertebral joint arthropathy are present with moderate bilateral neural fo raminal stenosis. C4-C5: Surgically absent disc with osteophytes with moderate to severe spinal canal stenosis.. Bilat eral facet and uncovertebral joint arthropathy are present with moderate bilateral neural foraminal s tenosis. C5-C6: Surgically absent disc with osteophytes with moderate to severe spinal canal stenosis. Bilate ral facet and uncovertebral joint arthropathy are present with moderate bilateral neural foraminal st enosis. C6-C7: No significant disc pathology. The spinal canal is patent. No neural foraminal stenosis. C7-T1: No significant disc pathology. The spinal canal is patent. No neural foraminal stenosis. Other: None. IMPRESSION: 1. Postsurgical changes spine with myelomalacia at multiple levels extending from C4 through C6. Wit h moderate to severe spinal canal stenosis at C4-C5 and C5-C6. 2. No evidence of intracranial mass or acute/subacute infarct. 3. Nonspecific white matter changes, likely secondary to small vessel ischemic disease. [facility], , 12/30/2024 2:48 PM
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
[2024-12-30] MEDS ORDERED: bisacodyL 5 MG TABLET.DR PO PRN (16:39)
[2024-12-30] MEDS: polyethylene glycoL 3350 17 GM POWD.PACK PO SCH (18:17)
[2024-12-30] MEDS: DOCUSATE 100 MG CAP PO SCH (20:39)
[2024-12-31 07:38] VITALS: RESP 16; TEMP 97.4
--- NOTE | 2024-12-31 09:15 | P.PN ---
Subjective Progress Note Date: 12/30/24 Patient was seen for a follow-up. Patient is sitting on the side of the bed. Patient's and patient's 2 sons were also present by the bedside. Patient denies any new concerns. Objective - Vital Signs Vital signs: Vital Signs Temp 98.1 F 12/30/24 13:10 Pulse 94 12/30/24 13:10 Resp 17 12/30/24 13:10 BP 113/53 12/30/24 13:10 Pulse Ox 94 L 12/30/24 13:10 FiO2 Intake & Output 12/29/24 12/30/24 12/30/24 18:59 06:59 18:59 Intake Total 374 Output Total 1450 700 Balance -1076 -700 Intake: IV 20 Invasive Line 1 10 Invasive Line 2 10 Oral 354 Output: Urine 1450 700 Other: Voiding Method Self-Catheterization Self-Catheterization Self-Catheterization # Voids 3 - Exam Examination unchanged. - Labs CBC & Chem 7: 12/28/24 13:11 12/28/24 13:11 Assessment and Plan Assessment: * Acute onset of left arm weakness since 9 AM. It appears patient's symptoms improved in the ER, when he was considered not a candidate for TNK, however he continues to have weakness of the left upper limb, and he believes it is about 50% loss of strength in the left arm as compared to his baseline strength. Patient's NIH stroke scale is somewhat difficult to assess because of chronic baseline weakness in bilateral lower limbs, particularly since the fall 1 week ago. Although his left arm is clinically weak, but there was no pronator drift noted. * History of chronic neck and lower back pain, and prior history of neck surgery with fusion. * Recent history of fall about a week ago due to leg giving out, with subsequent worsening of sciatic pain and leg weakness * Hypertension * Sleep apnea * X tobacco use Plan: * MRI of the brain without contrast revealed no evidence of intracranial mass or acute/subacute infarct. Nonspecific white matter changes, likely secondary to small vessel ischemic disease. I personally reviewed MRI, agree with the findings. No acute process. * MRI of the cervical spine revealed postsurgical changes spine with myelomalacia at multiple levels extending from C4 through C6. With moderate to severe spinal canal stenosis at C4-C5 and C5-C6 levels. I personally reviewed MR agree with the findings. * We will consult orthopedic spine for new onset left arm weakness with abnormal MRI of the cervical spine. * CTA head and neck showed: Moderate right ICA focal stenosis approximately 2 cm distal to the bifurcation. No other occlusive disease is identified. If stroke is confirmed, this could be potentially symptomatic. * Fasting a.m. lipid panel with cholesterol 182, LDL 114, HDL 45 and triglycerides 109. Patient started on Lipitor 20 mg daily. * Hemoglobin A1c 5.5 * Optimize control of blood pressure. * Patient has been placed on DAPT. With normal brain MRI, may stop Plavix. Continue aspirin 81 mg. * Neuro checks every 4 hours. * Telemetry monitoring rule out any arrhythmia * PT, OT, * DVT prophylaxis: Heparin 5000 units subcu every 8 hours
[2024-12-31] MEDS: FOLIC ACID 1 MG TAB PO SCH (10:29)
[2024-12-31 10:36] LABS: Basophils # (A) 0.04 X 10*3/uL (0.00-0.10); Basophils % (A) 0.5 %; Eosinophils % (A) 3.6 %; HCT 45.2 % (39.6-50.0); HGB 15.5 g/dL (13.0-17.0); Lymphocytes # (A) 2.04 X 10*3/uL (0.90-5.00); Lymphocytes % (A) 24.4 %; MCH 32.7 pg (27.0-32.0); MCHC 34.3 g/dL (32.0-37.0); MCV 95.4 FL (80.0-97.0); Mean Platelet Volume 9.7 FL (9.5-12.2); Monocytes # (A) 0.91 X 10*3/uL (0.20-1.00); Monocytes % (A) 10.9 %; NRBC Per 100 WBC 0 X 10*3/uL (0.00-0.01); Neutrophils # (A) 5.02 X 10*3/uL (1.80-7.70); Platelet Count 159 X 10*3/uL (140-440); RBC 4.74 X 10*6/uL (4.40-5.60); RDW 12.5 % (11.5-14.5); WBC 8.36 X 10*3/uL (4.50-10.00)
[2024-12-31 10:40] LABS: BUN/Creat Ratio 25.12 Ratio (12.00-20.00); Blood Urea Nitrogen 20.1 mg/dL (9.0-27.0); Calcium 8.8 mg/dL (8.7-10.3); Carbon Dioxide 24.9 mmol/L (21.6-31.8); Chloride 101 mmol/L (96-109); Glucose 90 mg/dL (70-110); Potassium 4.3 mmol/L (3.5-5.5); Sodium 136 mmol/L (135-145)
--- NOTE | 2024-12-31 11:51 | P.CNOR ---
History of Present Illness - [facility] Consult date: 12/31/24 Requesting physician: Kiara Morris Consult reason: other (Cervical MRI results; Left UE weakness) History of present illness: Patient is a pleasant 64-year-old male who seems and bedside for further evaluation of his cervical spine. He presented to the emergency department for evaluation of strokelike symptoms. He woke up in the morning without incident. Around noon he began to experience significant acute onset weakness with his left director selection and administration and thumb. He is having difficulty taking the cover office phone number opening a jar. He presents emergency department for further evaluation. He underwent further evaluation for possible stroke. No significant findings was found at that time. He has been seen by neurology. Neurology ordered brain and cervical MRI imaging. We will consult following the cervical MRI results. Patient has an extensive surgical history in regards to his cervical spine, thoracic spine, and lumbar spine. He is undergone for surgical interventions and cervical spine, all by different surgeons. His most recent surgery was performed through [facility]. He does follow without surgeon. He has retained hardware at C3-4 and C7-T1 with evidence of complete fusion of the anterior cervical spine along with retained posterior cervical hardware. He has also undergone 5 surgical interventions between his thoracic and lumbar spine with retained hardware. He does admit to known significant change of his spinal cord. He has chronic weakness with his right upper extremity. He has difficulty with his ambulation. He has been self catheterizing over the past 10 years. He recently sustained a fall in [place]. He states he had a steroid injection while in [place]. Upon returning back to [place] he has subsequently had 2 further steroid injections. He states he does not think his spine surgeon with performing further surgical intervention but he plans to follow-up with him following discharge from the hospital. He is being seen by medicine and neurology. Past Medical History Past Medical History: Hypertension, Sleep Apnea/CPAP/BIPAP Additional Past Medical History / Comment(s): CPAP -USES CPAP. CHRONIC BACK PAIN (USES CANES TO WALK). straight caths self (uses 16 FR catheters) History of Any Multi-Drug Resistant Organisms: None Reported Past Surgical History: Back Surgery, Cholecystectomy, Tonsillectomy Additional Past Surgical History / Comment(s): HAD BILAT CATARACT REMOVED WITH LENS IMPLANTS. AUTO TRAUMA: HAS HAD 4 BACK SURGERIES PLUS 5 CERIVAL FUSIONS. RIGHT ORIF AND ALSO REFRACTURED THAT LEG., COLONOSCOPY , RT KNEE SX Past Anesthesia/Blood Transfusion Reactions: No Reported Reaction Past Psychological History: No Psychological Hx Reported Smoking Status: Former smoker Past Alcohol Use History: Occasional Additional Past Alcohol Use History / Comment(s): QUIT 15 YRS AGO (2000). SMOKED FOR: 25 YR. PPD: 1.5 Past Drug Use History: None Reported - Past Family History Mother Family Medical History: Cancer Additional Family Medical History / Comment(s): BREAST CA Medications and Allergies Home Medications Medication Instructions Recorded Confirmed Type Baclofen [Lioresal] 20 mg PO QID 02/23/16 12/28/24 History Losartan-Hctz 50-12.5 mg [Hyzaar 1 tab PO DAILY 12/28/24 12/28/24 History 50-12.5] Naproxen [Naprosyn] 500 mg PO BID PRN 12/28/24 12/28/24 History Allergies Allergy/AdvReac Type Severity Reaction Status Date / Time No Known Allergies Allergy Verified 12/28/24 13:33 Physical Examination Physical examination: Patient is awake, alert, and oriented 3 Evidence of multiple well-healed incisions over the anterior cervical spine Evidence of well-healed midline posterior cervical incision Patient has weakness with his left director selection and administration and thumb extension with strength 3/5. Chronic weakness with right deltoid with decreased range of motion with strength 4/5 Bilateral biceps and triceps strength adequately maintained Results Pertinent studies: MRI of the cervical spine taken on 12/30/2024: Evidence of extensive surgical treatment with apparent retained hardware at C3-4 and C7-T1 anteriorly and posterior hardware at approximately C2-5; evidence of solid bony fusion througho ut the cervical spine anteriorly; evidence of significant cord signal change at C4-6; 34 moderate spinal canal stenosis and moderate bilateral foraminal stenosis; C4-5 moderate severe spinal stenosis with moderate bilateral foraminal stenosis; C5-6 moderate severe spinal canal stenosis with moderate bilateral foraminal stenosis - Labs Labs: Abnormal Lab Results - Last 24 Hours (Table) 12/31/24 12/31/24 Range/Units 06:23 06:23 MCH 32.7 H (27.0-32.0) pg Immature Gran # 0.05 H (0.00-0.04) X 10*3/uL BUN/Creatinine Ratio 25.12 H (12.00-20.00) Ratio H & H 12/28/24 12/31/24 Range/Units 13:11 06:23 Hgb 15.7 15.5 (13.0-17.5) gm/dL Hct 46.2 45.2 (39.0-53.0) % Coagulation 12/28/24 Range/Units 13:11 INR 1.0 (<1.2) Result Diagrams: 12/31/24 06:23 12/31/24 06:23 Assessment and Plan Assessment: Assessment: Acute weakness with left director selection and administration and thumb extension without injury Cervical spinal stenosis Cervical spondylosis Chronic right upper extremity weakness History of 4 surgical intervention the cervical spine History of 5 surgical interventions at his thoracic and lumbar spines History of chronic lower extremity weakness History of self-catheterization over the past 10 years Chronic weakness (1) Cervical myelopathy Current Visit: Yes Status: Acute Code(s): G95.9 - DISEASE OF SPINAL CORD, UNSPECIFIED SNOMED Code(s): 159305373 (2) Cervical cord myelomalacia Current Visit: Yes Status: Acute Code(s): G95.89 - OTHER SPECIFIED DISEASES OF SPINAL CORD SNOMED Code(s): 35866220 (3) Upper extremity weakness Current Visit: Yes Status: Acute Code(s): R29.898 - OTH SYMPTOMS AND SIGNS INVOLVING THE MUSCULOSKELETAL SYSTEM SNOMED Code(s): 542242254 (4) H/O cervical spinal arthrodesis Current Visit: Yes Status: Acute Code(s): Z98.1 - ARTHRODESIS STATUS SNOME D Code(s): 1484730039688 (5) Cervical stenosis of spinal canal Current Visit: Yes Status: Acute Code(s): M48.02 - SPINAL STENOSIS, CERVICAL REGION SNOMED Code(s): 25486463 (6) Cervical spondylosis Current Visit: Yes Status: Acute Code(s): M47.812 - SPONDYLOSIS W/O MY ELOPATHY OR RADICULOPATHY, CERVICAL REGION SNOMED Code(s): 506664991 Plan: Plan: 1. Patient began to expanse acute weakness with his left director selection and administration and thumb extension without injury after being awake for several hours. He has had some slight improvement since initial onset of his symptoms but has not returned to baseline. Initially he thought he was having strokelike symptoms and was brought to the emergency department for further evaluation. Upon further evaluation he was not found to have stroke and was not treated in this regard. MRI imaging the cervical spine was performed which does show significant change at his cervical spine with evidence of multiple surgical interventions with evidence of retained hardware anteriorly at C3-4 and C7-T1 as well as posteriorly at approximately C2-5. There is evidence of cord signal change. Patient states he has a history of cord signal change. He is chronically my elopathic. He has had some improvement of his symptoms on steroid medication. He is undergone 3 steroid medications for the past week. Currently, we are not planning to prescribe any further medications for him. He is known to follow with his orthopedic spine surgeon. [facility]. He does not need acute surgical intervention during his admission. We recommend him to follow-up with his orthopedic spine surgeon who knows his history and imaging in significant detail. Patient would like to follow with his orthopedic spine surgeon and does not wish to pursue further significant treatment here at [facility]. Patient states he feels most of his symptoms are chronic in nature and will not have any significant improvement with time. We did discuss would recommend following with his orthopedic spine surgeon and he would be cleared for discharge from orthopedic spine standpoint here at [facility]. Patient feels this is a good plan of care and we'll plan to contact his orthopedic spine surgeon for further evaluation. We will plan to have him follow-up on as-needed basis but will defer to his regular orthopedic spine surgeon. 2. Patient will continue be seen and examined by medicine and neurology. Time with Patient: Greater than 30
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
[2024-12-31 14:27] VITALS: BP 157/84; PULSE 92
[2024-12-31] MEDS ORDERED: ATORVASTATIN 20 MG TAB PO SCH (21:00)
--- NOTE | 2025-01-01 09:30 | P.PN ---
Subjective Progress Note Date: 12/31/24 Patient was seen for a follow-up. Patient is sitting on the side of the bed. Family members were not present. No new concerns. Objective - Vital Signs Vital signs: Vital Signs Temp 97.4 F L 12/31/24 07:37 Pulse 85 12/31/24 07:37 Resp 16 12/31/24 07:37 BP 146/73 12/31/24 07:37 Pulse Ox 94 L 12/31/24 07:37 FiO2 Intake & Output 12/30/24 12/31/24 12/31/24 18:59 06:59 18:59 Intake Total 221 Output Total 1045 700 Balance -7827 -233 Intake: Oral 221 Output: Urine 1045 700 Other: Voiding Method Self-Catheterization Self-Catheterization Self-Catheterization # Voids 2 2 - Exam Mental status, speech and language functions and cranial nerves are normal. On muscle strength testing (right/left) deltoid 5-/5-4+, biceps 3+/5, triceps 5/5, phonograph needle tip maker 4+/4, wrist extension 5/5, interossei 4+/4, hip flexion 3 3-/3 3+, ankle dorsiflexion 5/5 Patient appears to be somewhat unsteady even sitting. Appears to have some truncal weakness it appears. - Labs CBC & Chem 7: 12/31/24 06:23 12/31/24 06:23 Labs: Abnormal Lab Results - Last 24 Hours (Table) 12/31/24 12/31/24 Range/Units 06:23 06:23 MCH 32.7 H (27.0-32.0) pg Immature Gran # 0.05 H (0.00-0.04) X 10*3/uL BUN/Creatinine Ratio 25.12 H (12.00-20.00) Ratio Assessment and Plan Assessment: * Acute onset of left arm weakness since 9 AM. It appears patient's symptoms improved in the ER, when he was considered not a candidate for TNK, however he continues to have weakness of the left upper limb, and he believes it is about 50% loss of strength in the left arm as compared to his baseline strength. Acute stroke ruled out. Symptoms most likely due to cervical myelopathy. * History of chronic neck and lower back pain, and prior history of neck surgery with fusion. * Recent history of fall about a week ago due to leg giving out, with subsequent worsening of sciatic pain and leg weakness * Hypertension * Sleep apnea * X tobacco use Plan: * MRI of the brain without contrast revealed no evidence of intracranial mass or acute/subacute infarct. Nonspecific white matter changes, likely secondary to small vessel ischemic disease. I personally reviewed MRI, agree with the findings. No acute process. * MRI of the cervical spine revealed postsurgical changes spine with myelomalaci a at multiple levels extending from C4 through C6. With moderate to severe spinal canal stenosis at C4-C5 and C5-C6 levels. I personally reviewed MR agree with the findings. 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 In fact the current MRI appears better. I reviewed it with the radiologist. He agreed, and feels the odontoid process measuring 14 mm is stable in size dating back to at least 08/16/2022 CT. * Orthopedic surgery was consulted. They discussed with the patient and it was decided that patient will follow-up with his neurosurgeon Dr. Dickinson, in [facility]. * CTA head and neck showed: Moderate right ICA focal stenosis approximately 2 cm distal to the bifurcation. No other occlusive disease is identified. If stroke is confirmed, this could be potentially symptomatic. * Fasting a.m. lipid panel with cholesterol 182, LDL 114, HDL 45 and triglycerides 109. Patient started on Lipitor 20 mg daily. * Hemoglobin A1c 5.5 * B12 579, folate 9.5. Patient started on folic acid and 0.5 mg daily. * Optimize control of blood pressure. * Patient has been placed on DAPT. With normal brain MRI, may stop Plavix. Continue aspirin 81 mg. * Neuro checks every 4 hours. * Telemetry monitoring rule out any arrhythmia * PT, OT, * DVT prophylaxis: Heparin 5000 units subcu every 8 hours * Neurologically clear for discharge.
== END 2024-12-31 16:20 | disposition home or self-care (01) | DRG 93 ==
LOC: EC 12:19 → 6NMEDSUR 16:00 → OBSVTOIN 16:01 → 1SOBS 16:49 → 6NMEDSUR 12-30 17:11
PROVIDERS: ADMIT Student in an Organized Health Care Education/Training Program; ATTEND Student in an Organized Health Care Education/Training Program
DX: G95.89 Other specified diseases of spinal cord (principal); G47.30 Sleep apnea, unspecified; I10 Essential (primary) hypertension; G89.29 Other chronic pain; M54.31 Sciatica, right side; M54.32 Sciatica, left side; Z96.1 Presence of intraocular lens; M48.02 Spinal stenosis, cervical region; M47.22 Other spondylosis with radiculopathy, cervical region; Z98.42 Cataract extraction status, left eye; Z98.41 Cataract extraction status, right eye; Z87.891 Personal history of nicotine dependence; Z98.1 Arthrodesis status; Z91.81 History of falling
CPT/HCPCS: 36415; 70450; 70496; 70498; 70551; 71046; 72141; 80048; 80053; 80061; 82550; 82607; 82746; 83036; 83735; 84484; 85025; 85610; 85730; 93005; 99285

== ENCOUNTER → 2025-01-10 | Outpatient (CLI) | payer OTHER ==
--- NOTE | 2025-01-10 22:10 | MR ---
EXAMINATION TYPE: MR lumbar spine wo con DATE OF EXAM: 01/10/2025 9:54 PM COMPARISON: 10/22/2022. CLINICAL INDICATION: Male, 64 years old with history of M54.59; PHH, low back pain that radiates into both legs. TECHNIQUE: Multi planar, multi sequence imaging was performed utilizing: T1-weighted, T2-weighted, a nd turbo inversion recovery imaging of the lumbar spine. IV Contrast: mL (None, if empty) FINDINGS: Alignment: The lumbar vertebral bodies have preserved heights and alignment. Cord: The conus medullaris and the distal spinal cord appear unremarkable with regards to their signa l intensity and morphology. Bones/Discs: Moderate to severe degeneration changes of the spine with fixation hardware at L1-L2. Odonnell rdware limits evaluation slightly at this level. No evidence for spinal fracture. Scattered Modic typ e II endplate changes throughout the spine with osteophytes and facet joint arthropathy are severe th roughout the lumbar spine. T12-L1: Osteophyte on the right aspect and facet joint arthropathy result in mild spinal canal and mi ld bilateral neural foraminal stenosis. L1-L2: Susceptibility artifact limits evaluation at this level there is a left central osteophyte tayla pat protrusion 601 image 22. This mildly narrows the spinal canal and compresses and displaces the ca uda equina slightly. L2-L3: Susceptibility artifact limits evaluation at this level. There is severe spinal canal stenosis at this level secondary to disc bulge and facet joint arthropathy is moderate bilateral neural nona inal stenosis. L3-L4: Moderate to severe spinal canal stenosis secondary to osteophytes and facet joint arthropathy moderate bilateral neural foraminal stenosis. L4-L5: Moderate to severe spinal canal stenosis secondary to osteophyte and facet joint arthropathy. Trace bilateral facet joint effusions. Cauda equina bunching. Moderate to severe bilateral neural for aminal stenosis. L5-S1: The disc has a rounded posterior morphology without significant spinal canal stenosis. Facet j oint arthropathy with severe bilateral neural foraminal stenosis with osteophyte impressing upon the exiting nerves.. No significant spinal canal or neural foraminal stenosis in the remainder of the visualized levels. Other findings: None. IMPRESSION: 1. L1-L2 left central disc protrusion versus osteophyte which impresses upon the cauda equina. 2. L2-L3 severe spinal canal stenosis with cauda equina bunching. There is moderate bilateral neural foraminal stenosis at this level. 3. Moderate to severe L3-L4 and L4-L5 spinal canal stenosis secondary to suspected facet joint arthr opathy. 4. Moderate to severe bilateral neural foraminal stenosis L4-L5 5. Moderate bilateral neural foraminal stenosis L3-L4. 6. Severe bilateral neural foraminal stenosis with osteophyte impressing upon the exiting nerves. L5 -S1. [facility], , 01/10/2025 10:08 PM
== END | disposition home or self-care (01) ==
LOC: RADMRIMAIN 21:15
PROVIDERS: ATTEND Family Medicine
DX: M47.896 Other spondylosis, lumbar region (principal); M99.71 Connective tissue and disc stenosis of intervertebral foramina of cervical region
CPT/HCPCS: 72148